=== PATIENT | female | born 1980 ===

== ENCOUNTER 2016-12-30 17:07 | Emergency (ER) | payer OTHER, SELFPAY ==
[2016-12-30 17:12] VITALS: BP 161/89; PULSE 98; RESP 18; TEMP 98.3; O2SAT 99
--- NOTE | 2016-12-30 18:10 | ED PDOC ---
Lower Extremity Pain/Injury Time Seen by Provider: 12/30/16 17:59 Chief Complaint (Nursing): Lower Extremity Problem/Injury Chief Complaint (Provider): Lower Extremity Problem/Injury History Per: Patient History/Exam Limitations: no limitations Onset/Duration Of Symptoms: Days Current Symptoms Are (Timing): Still Present Severity: Mild Additional Complaint(s): 36 y/o female patient presenting to the ED with foot pain in the right and left. PT states that from Wednesday on she noticed that her feet were swelling and were red. She also states there is some mild pain in her calves and lower legs. PT states she works Wednesday through Wednesday 7-4 and stands on her feet all day mainly standing in one place. PT denies wearing high heels and changes up her shoe selection often. PT says she began having chills today and denies any fever, shortness of breath, diabetes, allergies, - Ankle/Foot Description Of Injury: Other (Stands for long periods of time for work in the same spot ) Past Medical History Reviewed: Historical Data, Nursing Documentation, Vital Signs Vital Signs: Last Vital Signs Temp 98.3 F 12/30/16 17:09 Pulse 98 H 12/30/16 17:09 Resp 18 12/30/16 17:09 BP 161/89 H 12/30/16 17:09 Pulse Ox 99 12/30/16 17:09 - Medical History PMH: No Chronic Diseases Denies: Chronic Kidney Disease - Surgical History Surgical History: Cholecystectomy - Family History Family History: States: Unknown Family Hx - Home Medications Home Medications: Ambulatory Orders Medication Instructions Recorded Amoxicillin/Clavulanate [Augmentin 1 tab PO BID #10 tab 03/25/16 875 MG-125 MG] oxyCODONE/Acetaminophen [Percocet 1 ea PO Q6 PRN #20 tab 03/25/16 5/325 mg Tab] Sulfamethoxazole/Trimethoprim 1 tab PO BID #14 tab 07/24/16 [Bactrim DS 800 mg-160 mg] - Allergies Allergies/Adverse Reactions: Allergies Allergy/AdvReac Type Severity Reaction Status Date / Time No Known Allergies Allergy Verified 12/30/16 18:59 Review of Systems ROS Statement: Except As Marked, All Systems Reviewed And Found Negative Constitutional: Positive for: Chills. Negative for: Fever Respiratory: Negative for: Shortness of Breath Musculoskeletal: Negative for: Foot Pain ((+)Left and Right foot sweeling, Redness) Physical Exam - Reviewed Nursing Documentation Reviewed: Yes Vital Signs Reviewed: Yes - Physical Exam Appears: Positive for: Non-toxic, No Acute Distress Skin: Positive for: Normal Color, Warm Respiratory: Positive for: Normal Breath Sounds. Negative for: Respiratory Distress Pulses-Dorsalis Pedis (L): 2+ Pulses-Dorsalis Pedis (R): 2+ Extremity: Positive for: Normal ROM, Tenderness, Calf Tenderness, Swelling, Other (DP pulse 2+ bilateral). Negative for: Pedal Edema Neurologic/Psych: Positive for: Alert, Oriented. Negative for: Motor/Sensory Deficits - Laboratory Results Result Diagrams: 12/30/16 18:51 12/30/16 18:51 - ECG O2 Sat by Pulse Oximetry: 99 (RA) Pulse Ox Interpretation: Normal Medical Decision Making Medical Decision Making: Time: 1758 Initial impression: Rule Out DVT Initial plan: --CMP --ED URINE --CBC --CHEST TWO VIEWS --DUPLEX LOWER EXTREMITY CXR: NAD, as read by SILAS Labs resulted and reviewed with Pt. LE US; Negative Pt advised to drink fluids throughout the day, rest with feet up when she can and consider compression stockings Scribe Attestation: Documented by Vida Warren acting as a scribe for ANTOINE Beard MD Scribe Attestation: All medical record entries made by the Scribe were at my direction and personally dictated by me. I have reviewed the chart and agree that the record accurately reflects my personal performance of the history, physical exam, medical decision making, and the department course for this patient. I have also personally directed, reviewed, and agree with the discharge instructions and disposition. Disposition - Clinical Impression Clinical Impression: Lower extremity edema - Patient ED Disposition Is Patient to be Admitted: No - Disposition Disposition: Routine/Home Disposition Time: 20:49 Condition: STABLE Instructions: Leg Edema (ED) Forms: [employer] (Occitan) - POA Present On Arrival: None
[2016-12-30 19:22] LABS: BASO % 0.5 % (0.0-2.0); EOS # 0.1 K/uL (0.0-0.7); EOS % 1.3 % (0.0-4.0); HEMATOCRIT 35.6 % (34.0-47.0); LYMPH # 2.6 K/uL (1.0-4.3); LYMPH % 33.8 % (20.0-40.0); MEAN CELL VOLUME 71.4 fl (81.0-99.0); MEAN CORPUSCULAR HEMOGLOBIN 22.9 pg (27.0-31.0); MEAN CORPUSCULAR HGB CONC 32.1 g/dL (33.0-37.0); MEAN PLATELET VOLUME 7.6 fl (7.2-11.7); MONO # 0.6 K/uL (0.0-0.8); MONO % 7.9 % (0.0-10.0); NEUT # 4.3 K/uL (1.8-7.0); NEUT % 56.5 % (50.0-75.0); RED CELL DISTRIBUTION WIDTH 18.6 % (11.5-14.5); WHITE BLOOD COUNT 7.7 K/uL (4.8-10.8)
[2016-12-30 19:23] LABS: ALB/GLOB RATIO 1.2 (1.0-2.1); ALKALINE PHOSPHATASE 91 U/L (38-126); ALT/SGPT 57 U/L (9-52); AST/SGOT 40 U/L (14-36); BILIRUBIN,TOTAL 0.2 mg/dl (0.2-1.3); BLOOD UREA NITROGEN 15 mg/dl (7-17); CALCIUM 9.1 mg/dL (8.4-10.2); CARBON DIOXIDE 22 mmol/L (22-30); CHLORIDE 106 mmol/L (98-107); GFR AFRICAN-AMERICAN > 60; GLUCOSE,RANDOM 97 mg/dL (65-105); POTASSIUM 3.9 MMOL/L (3.6-5.0); SODIUM 140 mmol/l (132-148)
--- NOTE | 2016-12-30 20:08 | US ---
EXAM: US Duplex Bilateral Lower Extremity Veins CLINICAL HISTORY: 36 years old, female; Pain; Leg, lower; Bilateral; Additional info: R/O dvt TECHNIQUE: Real-time ultrasound scan of the veins of the bilateral lower extremities with color Doppler flow, spectral waveform analysis and compression. EXAM DATE/TIME: 12/30/2016 6:10 PM COMPARISON: No relevant prior studies available. FINDINGS: Normal-appearing compressibility, flow and augmentation response are seen within the common femoral, femoral and popliteal veins bilaterally. Flow is seen in the posterior tibial veins, in the calves bilaterally. IMPRESSION: No evidence of deep venous thrombosis in either leg.
--- NOTE | 2016-12-31 10:35 | RAD ---
HISTORY: LE edema COMPARISON: None available TECHNIQUE: Chest PA and lateral FINDINGS: Examination limited by habitus. The patient's chin obscures evaluation of the lung apices. LUNGS: No focal consolidation. Please note that chest x-ray has limited sensitivity for the detection of pulmonary masses. PLEURA: No significant pleural effusion identified. No definite pneumothorax . CARDIOVASCULAR: The cardiomediastinal silhouette appears within normal limits of size. OSSEOUS STRUCTURES: Mild degenerative changes of the spine. VISUALIZED UPPER ABDOMEN: Cholecystectomy clips. OTHER FINDINGS: None. IMPRESSION: No focal consolidation, significant pleural effusion, or definite pneumothorax identified.
== END 2016-12-30 21:06 | disposition home or self-care (01) ==
LOC: H.ER 17:07
DX: R60.0 Localized edema (principal)

== ENCOUNTER 2017-10-22 18:32 | Emergency (ER) | payer OTHER ==
[2017-10-22 18:57] VITALS: BP 143/95; PULSE 87; RESP 18; TEMP 98.5; O2SAT 99
[2017-10-22 20:09] LABS: BASO # 0.1 K/uL (0.0-0.2); BASO % 0.8 % (0.0-2.0); EOS # 0.2 K/uL (0.0-0.7); HEMOGLOBIN 12.7 g/dL (12.0-16.0); LYMPH % 37.3 % (20.0-40.0); MEAN CELL VOLUME 80.2 fl (81.0-99.0); MEAN CORPUSCULAR HGB CONC 33.6 g/dL (33.0-37.0); MEAN PLATELET VOLUME 7.3 fl (7.2-11.7); MONO # 0.5 K/uL (0.0-0.8); MONO % 5.8 % (0.0-10.0); NEUT # 4.4 K/uL (1.8-7.0); NEUT % 54.1 % (50.0-75.0); NRBC % 0.1 % (0.0-0.0); RBC 4.71 Mil/uL (3.80-5.20); RED CELL DISTRIBUTION WIDTH 14.8 % (11.5-14.5); WHITE BLOOD COUNT 8.2 K/uL (4.8-10.8)
[2017-10-22 20:17] LABS: INR 0.9 (0.9-1.2); PARTIAL THROMBOPLASTIN TIME 34.7 Seconds (25.6-37.1); PROTHROMBIN TIME 10.4 Seconds (9.8-13.1)
[2017-10-22 20:25] LABS: ALB/GLOB RATIO 1.1 (1.0-2.1); ALBUMIN 4.3 g/dL (3.5-5.0); GFR AFRICAN-AMERICAN > 60; GFR NON-AFRICAN AMERICAN > 60
[2017-10-22 20:34] LABS: ALT/SGPT 55 U/L (9-52); AST/SGOT 56 U/L (14-36); BLOOD UREA NITROGEN 16 mg/dl (7-17)
--- NOTE | 2017-10-22 21:42 | ED PDOC ---
HPI: Chest Pain Time Seen by Provider: 10/22/17 19:28 Chief Complaint (Nursing): Chest Pain Chief Complaint (Provider): Chest pain, dizziness History Per: Patient History/Exam Limitations: no limitations Onset/Duration Of Symptoms: Days (3) Additional History Per: Patient Additional Complaint(s): 37yo female with no past medical history, presents to ED with complaints of chest pain, dizziness for the past 3 days. 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 Patient denies any falls, head injury or loss of consciousness. She states since the initial episode, she has had recurrent dizziness and today had some chest discomfort. She denies any nausea, vomiting, diarrhea, abdominal pain, weakness, numbness. She has no other medical complaints. Past Medical History Reviewed: Historical Data, Nursing Documentation, Vital Signs Vital Signs: Last Vital Signs Temp 98.5 F 10/22/17 18:54 Pulse 87 10/22/17 18:54 Resp 18 10/22/17 18:54 BP 143/95 H 10/22/17 18:54 Pulse Ox 99 10/22/17 23:51 - Medical History PMH: No Chronic Diseases Denies: Chronic Kidney Disease - Surgical History Surgical History: Cholecystectomy - Family History Family History: States: Unknown Family Hx - Home Medications Home Medications: Ambulatory Orders Medication Instructions Recorded Amoxicillin/Clavulanate [Augmentin 1 tab PO BID #10 tab 03/25/16 875 MG-125 MG] oxyCODONE/Acetaminophen [Percocet 1 ea PO Q6 PRN #20 tab 03/25/16 5/325 mg Tab] Sulfamethoxazole/Trimethoprim 1 tab PO BID #14 tab 07/24/16 [Bactrim DS 800 mg-160 mg] - Allergies Allergies/Adverse Reactions: Allergies Allergy/AdvReac Type Severity Reaction Status Date / Time No Known Allergies Allergy Verified 12/30/16 18:59 Review of Systems ROS Statement: Except As Marked, All Systems Reviewed And Found Negative Constitutional: Negative for: Fever, Chills Cardiovascular: Positive for: Chest Pain Respiratory: Negative for: Shortness of Breath Gastrointestinal: Negative for: Nausea, Vomiting, Abdominal Pain Neurological: Positive for: Dizziness. Negative for: Weakness Physical Exam - Reviewed Nursing Documentation Reviewed: Yes Vital Signs Reviewed: Yes - Physical Exam Appears: Positive for: Non-toxic, No Acute Distress Head Exam: Positive for: ATRAUMATIC, NORMAL INSPECTION, NORMOCEPHALIC Skin: Positive for: Normal Color, Warm, Dry Eye Exam: Positive for: Normal appearance, EOMI, PERRL Neck: Positive for: Normal, Painless ROM, Supple Cardiovascular/Chest: Positive for: Regular Rate, Rhythm Respiratory: Positive for: Normal Breath Sounds. Negative for: Wheezing Gastrointestinal/Abdominal: Positive for: Normal Exam, Soft. Negative for: Tenderness Back: Positive for: Normal Inspection Extremity: Positive for: Normal ROM. Negative for: Pedal Edema, Deformity, Swelling Neurologic/Psych: Positive for: Alert, Oriented. Negative for: Motor/Sensory Deficits - Laboratory Results Result Diagrams: 10/22/17 19:56 10/22/17 19:56 - ECG O2 Sat by Pulse Oximetry: 99 (RA) Pulse Ox Interpretation: Normal Medical Decision Making Medical Decision Making: Impression: 37yo with dizziness x 3 days Plan: -- Labs -- EKG -- Urine drug screen Time: 23:35 Labs reviewed and show no significant abnormality. Chest x-Ray show no active disease. Patient is stable for discharge and advised of rapid follow up. Scribe Attestation: Documented by Jane Linares acting as a scribe for Brody Nolen MD Provider Attestation: All medical record entries made by the Scribe were at my direction and personally dictated by me. I have reviewed the chart and agree that the record accurately reflects my personal performance of the history, physical exam, medical decision making, and the department course for this patient. I have also personally directed, reviewed, and agree with the discharge instructions and disposition. Disposition - Clinical Impression Clinical Impression: Atypical chest pain, Dizziness - Disposition Referrals: [facility] [Outside] Disposition Time: 22:00 Condition: STABLE Instructions: Chest Pain That Is Not Caused by the Heart (DC) Forms: [employer] (Kazakh) Print Language: PASHTO
--- NOTE | 2017-10-23 08:05 | RAD ---
HISTORY: chest pain COMPARISON: No prior. FINDINGS: LUNGS: No active pulmonary disease. PLEURA: No significant pleural effusion identified, no pneumothorax apparent. CARDIOVASCULAR: Normal. OSSEOUS STRUCTURES: No significant abnormalities. VISUALIZED UPPER ABDOMEN: Normal. OTHER FINDINGS: None. IMPRESSION: No active disease.
--- NOTE | 2017-10-23 08:37 | CARD ---
APPROVED REPORT EKG Measurement Heart [id number] <Conclusion> Normal sinus rhythm Normal ECG
== END 2017-10-22 23:38 | disposition home or self-care (01) ==
LOC: H.ER 18:32
DX: R07.89 Other chest pain (principal); R42 Dizziness and giddiness